=== PATIENT | female | born 1970 | race African-American/Black ===

== ENCOUNTER 2016-07-23 21:29 | Emergency (ER) | payer OTHER, MEDICAID ==
[~2016-07-23] VITALS: Ht 157.5 cm; Wt 90.0 kg
[~2016-07-23 21:29] MED LIST: ALBU1AER INH; B-1210005 IM; BACL10TA PO; BUSP5 PO; GABA300C3 PO; LORT5TAB PO; PROM25SU8 PO; SYNT50TA OR; VITAMIN D
[2016-07-23 21:36] VITALS: BP 140/85; PULSE 108; RESP 18; TEMP 98.7; O2SAT 96
[2016-07-23] MEDS ORDERED: TRAM50TA PO (21:44)
[2016-07-23] MEDS ORDERED: GABA300C5 PO (21:44)
[2016-07-23] MEDS ORDERED: SODIUM CHLORIDE 0.9% FLUSH 5 ML FLUSH IVF PRN (21:45)
--- NOTE | 2016-07-23 21:57 | PD ---
HPI Chief Complaint: Chest Pain Time Seen by Provider: 21:53 Travel History International Travel<30 days: No Contact w/Intl Traveler<30days: No Traveled to known affect area: No History of Present Illness HPI 46-year-old female that presents to the ED for evaluation of left-sided chest pain that radiates to her back. Per patient she's had this for the past 2 hours. The patient is severe and comes and goes. Per patient he feels like a stabbing sensation. Per patient she's never had like this before. She denies any history of high blood pressure, high cholesterol, diabetes. She does state having a history of pulmonary embolism in the past but denies any blood thinners at this time. She states having some shortness of breath from the pain. Per patient the pain radiates to the back on the left side. Denies any history of smoking. Denies any history of heart disease on herself but does state having a history of heart disease in her family. History of CVAs and her family. She does state that she has a history of TIAs in herself. Allergies to morphine and Percocet. Denies any numbness, tilling, weakness. Per patient the pain does radiate to the left arm. PFSH Past Medical History Asthma: Yes Heart Rhythm Problems: No Cancer: Yes (OVARIAN) Cardiac Catheterization: No Cardiovascular Problems: No High Cholesterol: No Congestive Heart Failure: No Cerebrovascular Accident: Yes Diabetes: No Diminished Hearing: No Respiratory: Yes (pulmonary embolus) Immunizations Current: No Pneumonia: Yes (november 2010) PNEUMOCCOCAL Vaccine (Year): 2009 ?: Not Menopausal: Yes : 6 Para: 2 Miscarriage: 4 : 0 Ovarian Cysts: Yes (ovarian cancer/ovary removed) Past Surgical History Section: Yes (X 2) Coronary Artery Bypass Graft: No Gynecologic Surgery: Yes (OVARIAN CA.WITH 5 SURGERIES;LEFT OOPHERECTOMY) Hysterectomy: Yes (LT OOPHORECTOMY) Other Surgery: Yes (REMOVAL OF RIGHT BREAST MASS , thyroid/parathyroidectomy) Social History Alcohol Use: No Tobacco Use: No Substance Use: No Allergies-Medications (Allergen,Severity, Reaction): Coded Allergies: Morphine (Verified Allergy, Severe, ITCHING, 07/23/16) Percocet (Verified Allergy, Severe, ITCHING, 07/23/16) Reported Meds & Prescriptions Reported Meds & Active Scripts Active Reported Tramadol (Tramadol HCl) 50 Mg Tab 50 Mg PO Q8H PRN Gabapentin 300 Mg Cap 300 Mg PO TID Review of Systems Except as stated in HPI: all other systems reviewed are Neg Physical Exam Narrative GENERAL: SKIN: Warm and dry. HEAD: Atraumatic. Normocephalic. EYES: Pupils equal and round. No scleral icterus. No injection or drainage. ENT: No nasal bleeding or discharge. Mucous membranes pink and moist. Tongue is midline. No uvula deviation. NECK: Trachea midline. No JVD. CARDIOVASCULAR: Regular rate and rhythm. No murmurs, S3, S4. RESPIRATORY: No accessory muscle use. Clear to auscultation. Breath sounds equal bilaterally. GASTROINTESTINAL: Abdomen soft, non-tender, nondistended. Hepatic and splenic margins not palpable. MUSCULOSKELETAL: Extremities without clubbing, cyanosis, or edema. No obvious deformities. Full range of motion of the upper and lower x-rays bilaterally. 2 + pulses bilaterally. No lumbar, thoracic, cervical spine tenderness to palpation. NEUROLOGICAL: Awake and alert. No obvious cranial nerve deficits. Motor grossly within normal limits. Five out of 5 muscle strength in the arms and legs. Normal speech. PSYCHIATRIC: Appropriate mood and affect; insight and judgment normal. Data Data Last Documented VS Vital Signs Date Time Temp Pulse Resp B/P Pulse Ox O2 Delivery O2 Flow Rate FiO2 07/23/16 22:32 97 18 131/83 95 Room Air 07/23/16 21:39 2 07/23/16 21:36 98.7 Orders Electrocardiogram (07/23/16 21:45) Basic Metabolic Panel (Bmp) (07/23/16 21:45) Ckmb (Isoenzyme) Profile (07/23/16 21:45) Complete Blood Count With Diff (07/23/16 21:45) D-Dimer (07/23/16 21:45) Magnesium (Mg) (07/23/16 21:45) Prothrombin Time / Inr (Pt) (07/23/16 21:45) Act Partial Throm Time (Ptt) (07/23/16 21:45) Troponin I (07/23/16 21:45) Chest, Single Ap (07/23/16 21:45) Ecg Monitoring (07/23/16 21:45) Bilateral Bp Monitoring (07/23/16 21:45) Iv Access Insert/Monitor (07/23/16 21:45) Oximetry (07/23/16 21:45) Oxygen Administration (07/23/16 21:45) Sodium Chloride 0.9% Flush (Ns Flush) (07/23/16 21:45) Aspirin (Aspirin) (07/23/16 22:00) Ondansetron Inj (Zofran Inj) (07/23/16 22:00) Hydromorphone Pf Inj (Dilaudid Pf Inj) (07/23/16 22:00) CKMB (07/23/16 21:45) CKMB% (07/23/16 21:45) Ct Pulmonary Angiogram (07/23/16 22:42) Iohexol 350 Inj (Omnipaque 350 Inj) (07/23/16 22:56) Labs Laboratory Tests Test 07/23/16 21:45 White Blood Count 12.3 TH/MM3 Red Blood Count 4.31 MIL/MM3 Hemoglobin 12.2 GM/DL Hematocrit 37.5 % Mean Corpuscular Volume 87.0 FL Mean Corpuscular Hemoglobin 28.3 PG Mean Corpuscular Hemoglobin 32.5 % Concent Red Cell Distribution Width 15.4 % Platelet Count 368 TH/MM3 Mean Platelet Volume 7.2 FL Neutrophils (%) (Auto) 47.0 % Lymphocytes (%) (Auto) 41.8 % Monocytes (%) (Auto) 8.2 % Eosinophils (%) (Auto) 2.5 % Basophils (%) (Auto) 0.5 % Neutrophils # (Auto) 5.8 TH/MM3 Lymphocytes # (Auto) 5.1 TH/MM3 Monocytes # (Auto) 1.0 TH/MM3 Eosinophils # (Auto) 0.3 TH/MM3 Basophils # (Auto) 0.1 TH/MM3 CBC Comment DIFF FINAL Differential Comment Prothrombin Time 10.1 SEC Prothromb Time International 0.9 RATIO Ratio Activated Partial 27.1 SEC Thromboplast Time D-Dimer Quantitative (PE/DVT) 0.34 MG/L FEU Sodium Level 137 MEQ/L Potassium Level 4.2 MEQ/L Chloride Level 103 MEQ/L Carbon Dioxide Level 26.8 MEQ/L Anion Gap 7 MEQ/L Blood Urea Nitrogen 4 MG/DL Creatinine 0.75 MG/DL Estimat Glomerular Filtration 102 ML/MIN Rate Random Glucose 96 MG/DL Calcium Level 9.4 MG/DL Magnesium Level 2.5 MG/DL Total Creatine Kinase 186 U/L Creatine Kinase MB 0.6 NG/ML Troponin I LESS THAN 0.02 NG/ML MDM Medical Decision Making Medical Screen Exam Complete: Yes Emergency Medical Condition: Yes Medical Record Reviewed: Yes Interpretation(s) EKG shows sinus tachycardia but no sign of acute ischemia remembers by me and attending. CBC & BMP Diagram 07/23/16 21:45 Last Impressions Chest X-Ray 07/23/162144 Signed Impressions: Service Date/Time: , July 23, 2016 22:25 - CONCLUSION: Mild bibasilar atelectasis or possibly mild pulmonary edema developing. Star Cummings MD troponin negative CKMB negative clary-dimsindi WNL Differential Diagnosis Chest pain versus a typical chest pain versus pneumothorax versus pleurisy versus pneumonia versus PE versus ACS Narrative Course 46-year-old female that presents to the ED for evaluation of chest pain. Patient was properly examined and was found to have signs and symptoms consistent appears to be chest pain. Unclear etiology at this time. Patient does have risk factors for PE having had previous PE and cancer. Cannot completely rule out ACS. Patient was given IV pain medications as well as aspirin. Labs and imaging recommended. Patient agrees first to proceed. Labs and imaging showed pulmonary effusion but no sign of other acute disease. Case was discussed in my attending who recommends CT pulmonary angiogram secondary to patient's significant discomfort even after Dilaudid. Case will be signed out to my attending pending CT report. Leonard Schilling Jul 23, 2016 21:57
[2016-07-23] MEDS ORDERED: ASPIRIN 325 MG TAB PO ONE (22:00)
[2016-07-23] MEDS ORDERED: HYDROmorphone HCL PF 1 MG/ML VIAL IV PUSH ONE ×2 (22:00→23:30)
[2016-07-23] MEDS ORDERED: ONDANSETRON HCL 4 MG/2 ML VIAL IV PUSH ONE (22:00)
[2016-07-23 22:06] LABS: AUTOMATED NEUTROPHIL # 5.8 TH/MM3 (1.8-7.7); BASOPHIL # 0.1 TH/MM3 (0-0.2); BASOPHIL % 0.5 % (0.0-2.0); EOSINOPHIL # 0.3 TH/MM3 (0-0.4); EOSINOPHIL % 2.5 % (0.0-4.0); HEMATOCRIT 37.5 % (35.0-46.0); HEMO FLAGS DIFF FINAL; LYMPH % 41.8 % (9.0-44.0); LYMPHOCYTE # 5.1 TH/MM3 (1.0-4.8); MEAN CORPUSCULAR HEMOGLOBIN 28.3 PG (27.0-34.0); MEAN CORPUSCULAR HGB CONC 32.5 % (32.0-36.0); MONO % 8.2 % (0.0-8.0); PLATELET COUNT 368 TH/MM3 (150-450); RED BLOOD COUNT 4.31 MIL/MM3 (4.00-5.30); RED CELL DISTRIBUTION WIDTH 15.4 % (11.6-17.2); WHITE BLOOD COUNT 12.3 TH/MM3 (4.0-11.0)
[2016-07-23 22:15] LABS: APTT (PATIENT) 27.1 SEC (24.3-30.1); INTERNATIONAL NORMALIZED RATIO 0.9 RATIO; PROTHROMBIN TIME - PATIENT 10.1 SEC (9.8-11.6)
[2016-07-23 22:25] LABS: ANION GAP 7 MEQ/L (5-15); BICARBONATE 26.8 MEQ/L (21.0-32.0); BLOOD UREA NITROGEN 4 MG/DL (7-18); CHLORIDE 103 MEQ/L (98-107); GLOMERULAR FILTRATION RATE 102 ML/MIN (>89); MAGNESIUM 2.5 MG/DL (1.5-2.5); POTASSIUM 4.2 MEQ/L (3.5-5.1); SODIUM (NA) 137 MEQ/L (136-145)
[2016-07-23 22:30] LABS: CREATINE KINASE 186 U/L (26-192)
[2016-07-23 22:32] VITALS: BP 131/83; PULSE 97; RESP 18; O2SAT 95
--- NOTE | 2016-07-23 22:34 | RADRPT ---
EXAM DATE/TIME: 07/23/2016 22:25 [facility] COMPARISON: CT ABDOMEN & PELVIS W CONTRAST, October 03, 2012, 17:05. INDICATIONS : Chest pain. MEDICAL HISTORY : None. SURGICAL HISTORY : None. ENCOUNTER: Initial ACUITY: 1 day PAIN SCORE: 10/10 LOCATION: middle chest. FINDINGS: Mild consolidation developing at the bases, left slightly more so than right. No large effusion. No p neumothorax. CONCLUSION: Mild bibasilar atelectasis or possibly mild pulmonary edema developing. Star Cummings MD on July 23, 2016 at 22:31 Board Certified Radiologist. This report was verified electronically.
[2016-07-23 22:42] LABS: CKMB 0.6 NG/ML (0.5-3.6)
[2016-07-23] MEDS ORDERED: IOHEXOL 350 MG/ML 10 ML VIAL (for RAD DIAG) IV ONE (22:56)
--- NOTE | 2016-07-23 23:07 | RADRPT ---
EXAM DATE/TIME: 07/23/2016 22:52 [facility] COMPARISON: No previous studies available for comparison. INDICATIONS : Left sided chest pain that radiates to the back. IV CONTRAST: 70 cc Omnipaque 350 (iohexol) IV RADIATION DOSE: 23.04 CTDIvol (mGy) MEDICAL HISTORY : Carcinoma, not otherwise specified. Pulmonary embolism. SURGICAL HISTORY : None. ENCOUNTER: Initial ACUITY: 1 day PAIN SCALE: 8/10 LOCATION: chest TECHNIQUE: Volumetric scanning of the chest was performed using a pulmonary embolism protocol MIP images were re constructed. Using automated exposure control and adjustment of the mA and/or kV according to patien t size, radiation dose was kept as low as reasonably achievable to obtain optimal diagnostic quality images. FINDINGS: PULMONARY ARTERIES: No filling defects are seen in the pulmonary arteries through the segmental level. LUNGS: There is crowding of the bronchopulmonary markings in the lower lungs suggesting submaximal inspirati on. Small infiltrate in the medial right lower lung adjacent to the right epicardial fat pad. PLEURAE: There is no pleural thickening or pleural effusion. MEDIASTINUM: There is good visualization of the great vessels of the middle mediastinum. No evidence of mediastin al or hilar adenopathy/mass. MUSCULOSKELETAL: Within normal limits for patient age. CONCLUSION: 1. The study is negative for pulmonary embolism. 2. Small infiltrate medial right lower lung and submaximal inspiration. Nelson Gonzáles MD on July 23, 2016 at 23:03 Board Certified Radiologist. This report was verified electronically.
[2016-07-23] MEDS ORDERED: AZITHROMYCIN INJ 500 MG in SODIUM CHLOR 0.9% 250 ML INJ 250 ML IV ONE (23:30)
[2016-07-24 00:39] VITALS: BP 101/57; PULSE 96; RESP 18; O2SAT 93
[2016-07-24] MEDS ORDERED: AZIT250T3 PO (00:40)
--- NOTE | 2016-07-24 00:41 | PD ---
Data Data Last Documented VS Vital Signs Date Time Temp Pulse Resp B/P Pulse Ox O2 Delivery O2 Flow Rate FiO2 07/23/16 22:32 97 18 131/83 95 Room Air 07/23/16 21:39 2 07/23/16 21:36 98.7 Orders Electrocardiogram (07/23/16 21:45) Basic Metabolic Panel (Bmp) (07/23/16 21:45) Ckmb (Isoenzyme) Profile (07/23/16 21:45) Complete Blood Count With Diff (07/23/16 21:45) D-Dimer (07/23/16 21:45) Magnesium (Mg) (07/23/16 21:45) Prothrombin Time / Inr (Pt) (07/23/16 21:45) Act Partial Throm Time (Ptt) (07/23/16 21:45) Troponin I (07/23/16 21:45) Chest, Single Ap (07/23/16 21:45) Ecg Monitoring (07/23/16 21:45) Bilateral Bp Monitoring (07/23/16 21:45) Iv Access Insert/Monitor (07/23/16 21:45) Oximetry (07/23/16 21:45) Oxygen Administration (07/23/16 21:45) Sodium Chloride 0.9% Flush (Ns Flush) (07/23/16 21:45) Aspirin (Aspirin) (07/23/16 22:00) Ondansetron Inj (Zofran Inj) (07/23/16 22:00) Hydromorphone Pf Inj (Dilaudid Pf Inj) (07/23/16 22:00) CKMB (07/23/16 21:45) CKMB% (07/23/16 21:45) Ct Pulmonary Angiogram (07/23/16 22:42) Iohexol 350 Inj (Omnipaque 350 Inj) (07/23/16 22:56) Hydromorphone Pf Inj (Dilaudid Pf Inj) (07/23/16 23:30) Azithromycin Inj (Zithromax Inj) (07/23/16 23:30) Labs Laboratory Tests Test 07/23/16 21:45 White Blood Count 12.3 TH/MM3 Red Blood Count 4.31 MIL/MM3 Hemoglobin 12.2 GM/DL Hematocrit 37.5 % Mean Corpuscular Volume 87.0 FL Mean Corpuscular Hemoglobin 28.3 PG Mean Corpuscular Hemoglobin 32.5 % Concent Red Cell Distribution Width 15.4 % Platelet Count 368 TH/MM3 Mean Platelet Volume 7.2 FL Neutrophils (%) (Auto) 47.0 % Lymphocytes (%) (Auto) 41.8 % Monocytes (%) (Auto) 8.2 % Eosinophils (%) (Auto) 2.5 % Basophils (%) (Auto) 0.5 % Neutrophils # (Auto) 5.8 TH/MM3 Lymphocytes # (Auto) 5.1 TH/MM3 Monocytes # (Auto) 1.0 TH/MM3 Eosinophils # (Auto) 0.3 TH/MM3 Basophils # (Auto) 0.1 TH/MM3 CBC Comment DIFF FINAL Differential Comment Prothrombin Time 10.1 SEC Prothromb Time International 0.9 RATIO Ratio Activated Partial 27.1 SEC Thromboplast Time D-Dimer Quantitative (PE/DVT) 0.34 MG/L FEU Sodium Level 137 MEQ/L Potassium Level 4.2 MEQ/L Chloride Level 103 MEQ/L Carbon Dioxide Level 26.8 MEQ/L Anion Gap 7 MEQ/L Blood Urea Nitrogen 4 MG/DL Creatinine 0.75 MG/DL Estimat Glomerular Filtration 102 ML/MIN Rate Random Glucose 96 MG/DL Calcium Level 9.4 MG/DL Magnesium Level 2.5 MG/DL Total Creatine Kinase 186 U/L Creatine Kinase MB 0.6 NG/ML Troponin I LESS THAN 0.02 NG/ML [facility] Medical Record Reviewed: Yes Supervised Visit with AVILA: Yes Narrative Course I, Dr. Duncan, have reviewed the advance practice practitioner's documentation and am in agreement, met with the patient face to face, made the diagnosis, and the medical decision making was done by me. *My assessment and Findings: CBC & BMP Diagram 07/23/16 21:45 Troponin less than 0.02 EKG reveals sinus tachycardia with a rate of 104 and no ischemic injury pattern Coags normal D Dimer 0.34 Last [address] Angiography 07/23/162 Signed Impressions: Service Date/Time: July 22:52 - CONCLUSION: 1. The study is negative for pulmonary embolism. 2. Small infiltrate medial right lower lung and submaximal inspiration. Nelson Gonzáles MD Chest X-Ray 07/23/16 2145 Signed Impressions: Service Date/Time: July 22:25 - CONCLUSION: Mild bibasilar atelectasis or possibly mild pulmonary edema developing. Star Cummings MD The patient has a right lung pneumonia. We'll prescribe azithromycin. Diagnosis Primary Impression: Pneumonia Qualified Code: J18.1 - Pneumonia of right middle lobe due to infectious organism Referrals: [facility] 3 days Additional Instruction: You have a choice when it comes to health care, and we are glad that you chose [facility] Hopefully, we have met your expectations on today's visit. You are welcome to return to [facility] at any time, as we are committed to meeting the health care needs of our community. Med/Other Pt SpecificInfo: Prescription(s) given Scripts Azithromycin 250 Mg [id number] Mg PO DAILY #4 TAB Ref 0 Prov:Rich Duncan MD 07/24/16 Disposition: 01 DISCHARGE HOME Condition: Stable Rich Duncan MD Jul 24, 2016 00:41
[2016-07-24] MEDS ORDERED: HYDR-3533 PO (01:16)
--- NOTE | 2016-07-24 16:56 | EKG ---
Date Performed: 07/23/2016 Time Performed: 21:40:32 PTAGE: 46 years EKG: SINUS TACHYCARDIA ABNORMAL RHYTHM ECG PREVIOUS TRACING 09/15/2011 13.07.16 Compared to previous tracing, the patient is now tachycar dic. DOCTOR: Caity Anderson Interpretating Date/Time 07/24/2016 16:55:15
== END 2016-07-24 01:20 | disposition home or self-care (01) ==
LOC: NEPE 21:29
DX: J18.9 Pneumonia, unspecified organism (principal); R00.0 Tachycardia, unspecified; Z86.711 Personal history of pulmonary embolism
CPT/HCPCS: 71010; 71275; 80048; 82550; 82552; 83735; 84484; 85025; 85379; 85610; 85730; 93005; 96365; 96375; 96376; 99285; J0456; J1170; J2405; J7050; Q9967

== ENCOUNTER 2016-11-29 20:30 | Emergency (ER) | payer OTHER, MEDICAID ==
[~2016-11-29] VITALS: Ht 154.9 cm; Wt 87.1 kg
[~2016-11-29 20:30] MED LIST changes: -ALBU1AER INH; +AZIT250T3 PO; -B-1210005 IM; -BACL10TA PO; -BUSP5 PO; -GABA300C3 PO; +GABA300C5 PO; +HYDR-3533 PO; -LORT5TAB PO; -PROM25SU8 PO; -SYNT50TA OR; +TRAM50TA PO; -VITAMIN D
[2016-11-29 20:35] VITALS: BP 113/76; PULSE 102; RESP 16; TEMP 98.4
[2016-11-29] MEDS ORDERED: methylPREDNISolone SOD SUCC 125 MG/2 ML VIAL IV PUSH ONE (21:00)
[2016-11-29] MEDS ORDERED: RESP: ALBUTEROL 2.5 MG/IPRATROPIUM 0.5 MG NEB (SCH) NEB ONE (21:00)
--- NOTE | 2016-11-29 21:00 | PD ---
HPI Chief Complaint: Cold / Flu Symptoms Time Seen by Provider: 20:49 Travel History International Travel<30 days: No Contact w/Intl Traveler<30days: No Traveled to known affect area: No History of Present Illness HPI This 46-year-old female is complaining of persistent cough. She's been sick for about a week. SHe started levofloxacin but it does not seem to be helping. She's been coughing a lot bringing up some phlegm. She does have a history of asthma and is using an inhaler. She has a history of pulmonary emboli many years ago. In July of this year she had pneumonia. At that time she had a CT scan which was negative for pulmonary embolus. She has not had any recent leg swelling. She does have a history of asthma PFSH Past Medical History Asthma: Yes Heart Rhythm Problems: No Cancer: Yes (OVARIAN) Cardiac Catheterization: No Cardiovascular Problems: No High Cholesterol: No Congestive Heart Failure: No Cerebrovascular Accident: Yes Diabetes: No Diminished Hearing: No Respiratory: Yes (pulmonary embolus) Immunizations Current: No Pneumonia: Yes (november 2010) PNEUMOCCOCAL Vaccine (Year): 2009 Menopausal: Yes : 6 Para: 2 Miscarriage: 4 : 0 Ovarian Cysts: Yes (ovarian cancer/ovary removed) Past Surgical History Section: Yes (X 2) Coronary Artery Bypass Graft: No Gynecologic Surgery: Yes (OVARIAN CA.WITH 5 SURGERIES;LEFT OOPHERECTOMY) Hysterectomy: Yes (LT OOPHORECTOMY) Other Surgery: Yes (REMOVAL OF RIGHT BREAST MASS , thyroid/parathyroidectomy) Social History Alcohol Use: No Tobacco Use: No Substance Use: No Allergies-Medications (Allergen,Severity, Reaction): Coded Allergies: Morphine (Verified Allergy, Severe, ITCHING, 11/29/16) Percocet (Verified Allergy, Severe, ITCHING, 11/29/16) Reported Meds & Prescriptions Reported Meds & Active Scripts Active Reported Gabapentin 300 Mg Cap 300 Mg PO TID Review of Systems General / Constitutional: No: Fever, Chills Eyes: No: Diploplia, Blurred Vision HENT: No: Headaches, Vertigo Cardiovascular: No: Chest Pain or Discomfort, Palpitations Respiratory: Positive: Cough, Shortness of Breath Gastrointestinal: No: Vomiting, Diarrhea Genitourinary: No: Urgency, Frequency Musculoskeletal: Positive: Myalgias, No: Arthralgias Skin: No Rash Psychiatric: No: Anxiety Physical Exam Narrative GENERAL: Well-developed female SKIN: Focused skin assessment warm/dry. HEAD: Atraumatic. Normocephalic. EYES: Pupils equal and round. No scleral icterus. No injection or drainage. ENT: No nasal bleeding or discharge. Mucous membranes pink and moist. NECK: Trachea midline. No JVD. CARDIOVASCULAR: Regular rate and rhythm. No murmur appreciated. RESPIRATORY: No accessory muscle use. There are bilateral expiratory wheezes GASTROINTESTINAL: Abdomen soft, non-tender, nondistended. Hepatic and splenic margins not palpable. MUSCULOSKELETAL: No obvious deformities. No clubbing. No cyanosis. No edema. NEUROLOGICAL: Awake and alert. No obvious cranial nerve deficits. Motor grossly within normal limits. Normal speech. PSYCHIATRIC: Appropriate mood and affect; insight and judgment normal. Data Data Last Documented VS Vital Signs Date Time Temp Pulse Resp B/P Pulse Ox O2 Delivery O2 Flow Rate FiO2 11/29/16 21:53 20 96 11/29/16 20:35 98.4 102 113/76 Room Air Orders Complete Blood Count With Diff (11/29/16 20:56) Basic Metabolic Panel (Bmp) (11/29/16 20:56) Blood Culture (11/29/16 20:56) Influenzae A/B Antigen (11/29/16 20:56) Chest, Single Ap (11/29/16 20:56) Albuterol-Ipratropium Neb (Duoneb Neb) (11/29/16 21:00) Methylprednisolone So Succ Inj (Solumedr (11/29/16 21:00) Labs Laboratory Tests Test 11/29/16 11/29/16 21:30 21:40 White Blood Count 10.5 TH/MM3 Red Blood Count 4.15 MIL/MM3 Hemoglobin 11.6 GM/DL Hematocrit 35.8 % Mean Corpuscular Volume 86.3 FL Mean Corpuscular Hemoglobin 28.1 PG Mean Corpuscular Hemoglobin 32.5 % Concent Red Cell Distribution Width 14.9 % Platelet Count 325 TH/MM3 Mean Platelet Volume 7.4 FL Neutrophils (%) (Auto) 47.8 % Lymphocytes (%) (Auto) 39.5 % Monocytes (%) (Auto) 6.8 % Eosinophils (%) (Auto) 5.6 % Basophils (%) (Auto) 0.3 % Neutrophils # (Auto) 5.1 TH/MM3 Lymphocytes # (Auto) 4.1 TH/MM3 Monocytes # (Auto) 0.7 TH/MM3 Eosinophils # (Auto) 0.6 TH/MM3 Basophils # (Auto) 0.0 TH/MM3 CBC Comment DIFF FINAL Differential Comment Sodium Level 138 MEQ/L Potassium Level 3.7 MEQ/L Chloride Level 104 MEQ/L Carbon Dioxide Level 26.2 MEQ/L Anion Gap 8 MEQ/L Blood Urea Nitrogen 5 MG/DL Creatinine 0.80 MG/DL Estimat Glomerular Filtration 94 ML/MIN Rate Random Glucose 126 MG/DL Calcium Level 9.3 MG/DL [facility] Medical Decision Making Medical Screen Exam Complete: Yes Emergency Medical Condition: Yes Medical Record Reviewed: Yes Differential Diagnosis Differential includes pneumonia, bronchitis, asthma exacerbation Narrative Course White count is 10,000. X-ray is negative for pneumonia. Patient has been given Solu-Medrol and repeated nebulizer treatments with some improvement. She' ll be released with prescription for DuoNeb nebs, prednisone Diagnosis Primary Impression: Asthma exacerbation Scripts Ipratropium-Albuterol Neb (Duoneb)0.5-2.5 Mg/3 Ml Neb1 Nebule INH Q4HR NEB # 120 NEBULE Ref 0 Prov:Rommel Bateman MD 11/29/16 Prednisone (48) 10 mg tab Dose Pack 10 Mg Dspk10 Mg PO DIRECTED #1 DSPK Ref 0 Prov:Rommel Bateman MD 11/29/16 Disposition: 01 DISCHARGE HOME Condition: Stable Rommel Bateman MD November 29, 2016 21:00
--- NOTE | 2016-11-29 21:22 | RADHPO ---
EXAM DATE/TIME: 11/29/2016 21:10 [facility] COMPARISON: CHEST SINGLE AP, July 23, 2016, 22:25. INDICATIONS : Short of breath. MEDICAL HISTORY : None. SURGICAL HISTORY : None. ENCOUNTER: Initial ACUITY: 1 day PAIN SCORE: 6/10 LOCATION: Bilateral chest FINDINGS: A single view of the chest demonstrates the lungs to be symmetrically aerated without evidence of mas s, infiltrate or effusion. The cardiomediastinal contours are unremarkable. Osseous structures are intact. CONCLUSION: No acute disease. Norris Moffett MD FACR on November 29, 2016 at 21:20 Board Certified Radiologist. This report was verified electronically.
[2016-11-29 21:35] VITALS: BP 115/76; PULSE 72; RESP 20; O2SAT 98
[2016-11-29 21:52] LABS: AUTOMATED NEUTROPHIL # 5.1 TH/MM3 (1.8-7.7); BASOPHIL % 0.3 % (0.0-2.0); EOSINOPHIL # 0.6 TH/MM3 (0-0.4); EOSINOPHIL % 5.6 % (0.0-4.0); HEMATOCRIT 35.8 % (35.0-46.0); HEMO FLAGS DIFF FINAL; LYMPH % 39.5 % (9.0-44.0); LYMPHOCYTE # 4.1 TH/MM3 (1.0-4.8); MEAN CELL VOLUME 86.3 FL (80.0-100.0); MEAN CORPUSCULAR HEMOGLOBIN 28.1 PG (27.0-34.0); MEAN CORPUSCULAR HGB CONC 32.5 % (32.0-36.0); MONO % 6.8 % (0.0-8.0); NEUT % 47.8 % (16.0-70.0); PLATELET COUNT 325 TH/MM3 (150-450); RED BLOOD COUNT 4.15 MIL/MM3 (4.00-5.30); RED CELL DISTRIBUTION WIDTH 14.9 % (11.6-17.2); WHITE BLOOD COUNT 10.5 TH/MM3 (4.0-11.0)
[2016-11-29 22:08] LABS: POTASSIUM 3.7 MEQ/L (3.5-5.1)
[2016-11-29 22:12] LABS: BICARBONATE 26.2 MEQ/L (21.0-32.0)
[2016-11-29] MEDS ORDERED: PRED10PA2 PO (22:41)
[2016-11-29] MEDS ORDERED: IPRASOL INH (22:41)
[2016-11-29 22:59] VITALS: BP 102/56
== END 2016-11-29 23:00 | disposition home or self-care (01) ==
LOC: PHED 20:30
DX: J45.901 Unspecified asthma with (acute) exacerbation (principal); Z86.711 Personal history of pulmonary embolism; Z86.73 Personal history of transient ischemic attack (TIA), and cerebral infarction without residual deficits; Z79.899 Other long term (current) drug therapy
CPT/HCPCS: 71010; 80048; 85025; 87040; 87804; 94664; 96374; 99283; J2930

== ENCOUNTER 2016-12-03 08:05 | Emergency (ER) | payer OTHER, MEDICAID ==
[~2016-12-03] VITALS: Ht 154.9 cm; Wt 85.7 kg
[~2016-12-03 08:05] MED LIST changes: -AZIT250T3 PO; -HYDR-3533 PO; +IPRASOL INH; +PRED10PA2 PO; -TRAM50TA PO
[2016-12-03 08:08] VITALS: BP 114/83; PULSE 105; RESP 16; TEMP 98.2; O2SAT 96
[2016-12-03] MEDS ORDERED: SERT25TA83 PO (08:24)
[2016-12-03] MEDS ORDERED: RESP: ALBUTEROL 2.5 MG/IPRATROPIUM 0.5 MG NEB (SCH) NEB ONE (08:30)
[2016-12-03 08:36] LABS: BLOOD, URINE NEG (NEG); GLUCOSE,URINE NEG (NEG); KETONE, URINE NEG (NEG); NITRITE,URINE NEG (NEG)
[2016-12-03 08:38] LABS: METHOD OF COLLECTION CLEAN CATCH
[2016-12-03 08:39] LABS: BACTERIA, URINE FEW /hpf; RBC, URINE 0-3 /hpf (0-3); SQUAMOUS EPITHELIAL CELL URINE > 8 /hpf (0-5); URINE COLOR YELLOW (YELLW/STRAW); WBC, URINE 0-2 /hpf (0-5)
[2016-12-03 08:40] LABS: COMMENT (UR) CULT NOT INDICATED; CULTURE IF INDICATED CULT NOT INDICATED
[2016-12-03] MEDS ORDERED: NAPR500 PO (08:52)
[2016-12-03] MEDS ORDERED: PRED-503 PO (08:52)
[2016-12-03] MEDS ORDERED: NEBULIZER1 MI1 (08:52)
--- NOTE | 2016-12-03 08:52 | PD ---
HPI Chief Complaint: Flank/Kidney Pain Time Seen by Provider: 08:11 Travel History International Travel<30 days: No Contact w/Intl Traveler<30days: No Traveled to known affect area: No History of Present Illness HPI 46-year-old woman who presents to the emergency department by right flank pain. She's had URI symptoms for the past week or so. She has cough and cold congestion symptoms. She has had worsening asthma symptoms as well. She was seen 4 days ago for asthma exacerbation. She states over the past 2 days she started getting right flank pain. This is been persistent. Worse with deep breathing. It is not relieved by acetaminophen or ibuprofen. She otherwise has been feeling generally well. No fevers. She has had some chills. No other complaints. History Past Medical History Narrative Medical Asthma History of ovarian CVA Hypothyroidism PNEUMOCCOCAL Vaccine (Year): 2009 Menopausal: Yes : 6 Para: 2 Social History Alcohol Use: Yes (OCC) Tobacco Use: No Allergies-Medications (Allergen,Severity, Reaction): Coded Allergies: Morphine (Verified Allergy, Severe, ITCHING, 11/29/16) Percocet (Verified Allergy, Severe, ITCHING, 11/29/16) Reported Meds & Prescriptions Reported Meds & Active Scripts Active Nebulizer 1 Mis Mis 1 Ea .ROUTE DIRECTED Naprosyn (Naproxen) 500 Mg Tab 500 Mg PO BID PRN Deltasone (Prednisone) 20 Mg Tab 60 Mg PO DAILY 5 Days Duoneb (Ipratropium-Albuterol Neb) 0.5-2.5 Mg/3 Ml Neb 1 Nebule INH Q4HR NEB Prednisone (48) 10 mg tab Dose Pack (Prednisone) 10 Mg Dspk 10 Mg PO DIRECTED Reported Sertraline (Sertraline HCl) 25 Mg Tab 25 Mg PO DAILY Review of Systems Except as stated in HPI: all other systems reviewed are Neg Physical Exam Narrative GENERAL: Well-appearing 46-year-old woman, no acute distress. SKIN: Focused skin assessment warm/dry. HEAD: Atraumatic. Normocephalic. CARDIOVASCULAR: Regular rate and rhythm. No murmur appreciated. RESPIRATORY: No respiratory distress. Pretty tight wheezing throughout the posterior lung couch. GASTROINTESTINAL: Abdomen soft, non-tender, nondistended. Hepatic and splenic margins not palpable. MUSCULOSKELETAL: No obvious deformities. No clubbing. No cyanosis. No edema. NEUROLOGICAL: Awake and alert. No obvious cranial nerve deficits. Motor grossly within normal limits. Normal speech. PSYCHIATRIC: Appropriate mood and affect; insight and judgment normal. Data Data Last Documented VS Vital Signs Date Time Temp Pulse Resp B/P Pulse Ox O2 Delivery O2 Flow Rate FiO2 12/03/16 08:08 98.2 105 16 114/83 96 Orders Urinalysis - C+S If Indicated (12/03/16 08:14) Ed Urine Pregnancytest Poc (12/03/16 08:14) Chest, Single Ap (12/03/16 ) Albuterol-Ipratropium Neb (Duoneb Neb) (12/03/16 08:30) Labs Laboratory Tests Test 12/03/16 08:20 Urine Collection Type CLEAN CATCH Urine Color YELLOW Urine Turbidity CLEAR Urine pH 6.0 Urine Specific [place] 1.023 Urine Protein TRACE mg/dL Urine Glucose (UA) NEG mg/dL Urine Ketones NEG mg/dL Urine Occult Blood NEG Urine Nitrite NEG Urine Bilirubin NEG Urine Leukocyte Esterase NEG Urine RBC 0-3 /hpf Urine WBC 0-2 /hpf Urine Squamous Epithelial > 8 /hpf Cells Urine Bacteria FEW /hpf Microscopic Urinalysis Comment CULT NOT INDICATED Urine Collection Time 08:20 [facility] Medical Decision Making Medical Screen Exam Complete: Yes Emergency Medical Condition: Yes Interpretation(s) UA is unremarkable. My review chest x-ray: Negative. Differential Diagnosis URI, pleurisy, pneumothorax, pneumonia, UTI, kidney stone, other Narrative Course Medical decision making This a well 46-year-old woman presents emergency Department with a week's worth the URI symptoms and now some pleuritic right flank pain. She looks well. She probably pleurisy or chest wall strain or sprain. We'll check UA, look for evidence of hematuria to suggest stone or UTI. We'll check a chest x-ray rule out pneumothorax and pneumonia. She is having tight wheezing, she says she was given a prescription for steroids. She clearly was but apparently hasn't filled that. Nonetheless we'll put her on steroids, give her prescription for new nebulizer which she needs, have her take NSAIDs as needed for the pain. Diagnosis Primary Impression: Asthma exacerbation Patient Instructions: General Instructions Additional Instructions: Take prednisone tablets until gone. Use duo nebs every 4-6 hours until symptoms resolve. Take Naprosyn as needed for pain. Return to the emergency department for any worsening chest pain, trouble breathing, or any other new or worsening symptoms. Med/Other Pt SpecificInfo: Prescription(s) given Scripts Nebulizer 1 Mis Mis #1 EA .ROUTE DIRECTED Ref 0 Prov:Corby Muñoz MD 12/03/16 Naproxen (Naprosyn)500 Mg Ucc672 Mg PO BID PRN (PAIN SCALE 1 TO 10) #20 TAB Prov:Corby Muñoz MD 12/03/16 Prednisone (Deltasone)20 Mg Tab60 Mg PO DAILY 5 Days Prov:Corby Muñoz MD 12/03/16 Disposition: 01 DISCHARGE HOME Condition: Stable Corby Muñoz MD December 03, 2016 08:52
--- NOTE | 2016-12-03 09:06 | RADHPO ---
EXAM DATE/TIME: 12/03/2016 08:48 [facility] COMPARISON: CHEST SINGLE AP, November 29, 2016, 21:10. INDICATIONS : Patient has been short of breath since this morning. Patient states pain under right scapula. MEDICAL HISTORY : Asthma. SURGICAL HISTORY : None. ENCOUNTER: Initial ACUITY: 1 day PAIN SCORE: 9/10 LOCATION: Right Scapula. FINDINGS: A single view of the chest demonstrates the lungs to be symmetrically aerated without evidence of mas s, infiltrate or effusion. The cardiomediastinal contours are unremarkable. Osseous structures are intact. CONCLUSION: 1. No acute cardiopulmonary disease. Glenn Seals MD on December 03, 2016 at 9:01 Board Certified Radiologist. This report was verified electronically.
== END 2016-12-03 09:20 | disposition home or self-care (01) ==
LOC: PHED 08:05
DX: J45.901 Unspecified asthma with (acute) exacerbation (principal); R10.9 Unspecified abdominal pain; R09.81 Nasal congestion; E03.9 Hypothyroidism, unspecified; Z87.09 Personal history of other diseases of the respiratory system; Z87.42 Personal history of other diseases of the female genital tract
CPT/HCPCS: 71010; 81001; 84703; 94664; 99284